=== PATIENT | female | born 1955 | race Asian ===

== ENCOUNTER 2023-08-29 06:39 | Day surgery (SDC) | payer OTHER ==
[~2023-08-29] VITALS: Ht 172.7 cm; Wt 70.8 kg
[2023-08-29] MEDS ORDERED: DIPHENHYDRAMINE INJ 50 MG/ML VIAL ONE (07:53)
[2023-08-29 08:59] VITALS: O2SAT 100
[2023-08-29] MEDS ORDERED: iopamidoL 50 ML VIAL IV ONE (10:00)
[2023-08-29] MEDS ORDERED: LIDOCAINE MPF 2% 20 MG/1 ML, 5 ML VIAL INH ONE (10:00)
[2023-08-29] MEDS ORDERED: methylPREDNISolone ACETATE 40 MG/ML ONE (10:00)
[2023-08-29] MEDS ORDERED: NORMAL SALINE 10 ML VIAL ONE (10:00)
[2023-08-29] MEDS: MIDAZOLAM HCL 5 MG/5 ML VIAL ONE (10:56)
[2023-08-29] MEDS: fentaNYL CITRATE/PF 100 MCG/2 ML AMP ONE (10:57)
[2023-08-29 13:45] VITALS: BP_SYST 110; PULSE 87; RESP 17
== END 2023-08-29 11:49 | disposition home or self-care (01) ==
LOC: SMU 06:39 → SDS 06:39
PROVIDERS: ATTEND Internal Medicine
DX: M51.16 Intervertebral disc disorders with radiculopathy, lumbar region (principal); M51.9 Unspecified thoracic, thoracolumbar and lumbosacral intervertebral disc disorder; I10 Essential (primary) hypertension; E03.9 Hypothyroidism, unspecified; K21.9 Gastro-esophageal reflux disease without esophagitis; Z98.890 Other specified postprocedural states; Z79.890 Hormone replacement therapy; Z79.899 Other long term (current) drug therapy
CPT/HCPCS: 62323; J1030; J2250; J3010; Q9967; J1200

== ENCOUNTER 2024-02-06 12:47 | Day surgery (SDC) | payer OTHER ==
[~2024-02-06] VITALS: Ht 172.7 cm; Wt 70.8 kg
[2024-02-06 09:43] VITALS: O2SAT 98
[2024-02-06] MEDS: fentaNYL CITRATE/PF 100 MCG/2 ML AMP IVP ONE (10:02)
[2024-02-06] MEDS: MIDAZOLAM HCL 5 MG/5 ML VIAL ONE (10:02)
[2024-02-06] MEDS: MIDAZOLAM HCL 5 MG/5 ML VIAL IVP ONE ×2 (10:02→10:07)
[2024-02-06] MEDS: fentaNYL CITRATE/PF 100 MCG/2 ML AMP ONE (10:02)
[~2024-02-06 12:47] MED LIST: DEXAMETHASONE SOD PHOSPHATE 4 MG/ML VIAL ONE; IOHEXOL 300 mgI/mL, 50 mL INFUS..BTL IV ONE; LIDOCAINE MPF 2% 20 MG/1 ML, 5 ML VIAL INH ONE; NORMAL SALINE 10 ML VIAL ONE
[2024-02-06 17:49] VITALS: BP_SYST 128; PULSE 71; RESP 17
== END 2024-02-06 12:48 | disposition home or self-care (01) ==
LOC: SDS 12:47
PROVIDERS: ATTEND Internal Medicine
DX: M51.16 Intervertebral disc disorders with radiculopathy, lumbar region (principal); I10 Essential (primary) hypertension; K21.9 Gastro-esophageal reflux disease without esophagitis; E03.9 Hypothyroidism, unspecified; M79.10 Myalgia, unspecified site; Z98.890 Other specified postprocedural states; Z79.899 Other long term (current) drug therapy
CPT/HCPCS: 64483; 64484; J1100; J2250; J3010; Q9967; 76000